=== PATIENT | male | born 1975 | race Caucasian/White ===

== ENCOUNTER → 2018-11-01 | Outpatient (CLI) | payer BC ==
--- NOTE | 2018-11-03 15:28 | SLEEPHOME ---
DATE OF PROCEDURE: 11/01/2018 ORDERING PROVIDER: ABRAM Ruiz, copy to Malina Kevin PA-C. INTERPRETATION: Diagnostic home sleep testing was performed due to concern for the apnea syndrome in this patient with a history of excessive somnolence and nonrestorative sleep. For testing a nocturnal T3 respiratory monitoring device was used. Continuous record was made of pulse, oxygen saturation, airflow, chest and abdominal strain and body position. 10 hours and 59 minutes of data were reviewed. Of these 7 hours and 16 minutes were marked as time in bed. During the interval marked in bed, there were 52 respiratory events identified of 10 duration or greater for a respiratory event index of 7.1. The events were primarily obstructive and mixed and central apneas were seen. Baseline pulse rate 68 beats per minute, pulse rate ranged 57-173. Baseline saturation was 91%. Lowest oxygen saturation 81%. Testing was performed in both the supine and nonsupine positions. IMPRESSION: Abnormal home sleep testing with repetitive respiratory events and oxygen desaturations to 81% with a respiratory event index of 7.1 is consistent with the obstructive sleep apnea syndrome. RECOMMENDATIONS: The patient should be encouraged to undergo formal sleep evaluation and in-laboratory pressure titration.
== END ==
LOC: M SLEEP HO 13:10
PROVIDERS: ATTEND Nurse Practitioner Family
DX: G47.33 Obstructive sleep apnea (adult) (pediatric) (principal)

== ENCOUNTER → 2018-11-22 | Outpatient (REF) | payer BC ==
[2018-11-22 19:51] LABS: BASO % 0.4 % (0.0-1.0); EOS # 0.1 10^3/uL (0.0-0.50); EOS % 1.8 % (0.0-3.0); HEMATOCRIT 46.3 % (42.0-52.0); HEMOGLOBIN 15.9 g/dl (13.5-17.5); LYMPH # 1.9 10^3/uL (1.5-4.5); LYMPH % 24.3 % (24.0-44.0); MEAN CORPUSCULAR HEMOGLOBIN 30.3 pg (27.0-33.0); MEAN CORPUSCULAR HGB CONC 34.3 g/dl (32.0-36.5); MEAN CORPUSCULAR VOLUME 88.4 fl (80.0-96.0); MONO # 0.6 10^3/uL (0.0-0.8); MONO % 7.2 % (0.0-5.0); NEUTROPHILS # 5.1 10^3/uL (1.8-7.7); NEUTROPHILS % 65.9 % (36.0-66.0); PLATELET COUNT, AUTOMATED 193 10^3/uL (150-450); RED BLOOD COUNT 5.24 10^6/uL (4.30-6.10); WHITE BLOOD COUNT 7.7 10^3/uL (4.0-10.0)
[2018-11-22 20:10] LABS: ALBUMIN 4.1 GM/DL (3.2-5.2); ALT/SGPT 65 U/L (12-78); BILIRUBIN,TOTAL 0.5 MG/DL (0.2-1.0); BLOOD UREA NITROGEN 13 MG/DL (7-18); CALCIUM LEVEL 8.7 MG/DL (8.5-10.1); CARBON DIOXIDE LEVEL 25 MEQ/L (21-32); CHLORIDE LEVEL 103 MEQ/L (98-107); CHOLESTEROL LEVEL 117 MG/DL (<200); CREATININE FOR GFR 1.02 MG/DL (0.70-1.30); GLOMERULAR FILTRATION RATE > 60.0 (>60); GLUCOSE, FASTING 331 MG/DL (70-100); HDL CHOLESTEROL 39 MG/DL (>40); LDL CHOLESTEROL 64 MG/DL (<100); NON-HDL-C 78 MG/DL; POTASSIUM SERUM 4.4 MEQ/L (3.5-5.1); SODIUM LEVEL 136 MEQ/L (136-145); TOTAL 25(OH) VITAMIN D 20.1 NG/ML (30.0-100.0); TRIGLYCERIDES LEVEL 72 MG/DL (<150)
[2018-11-22 20:41] LABS: APPEARANCE, URINE MANUAL CLOUDY (CLEAR); COLOR, URINE MANUAL YELLOW (YELLOW)
[2018-11-22 20:42] LABS: BILIRUBIN, URINE MANUAL NEGATIVE (NEGATIVE); BLOOD URINE MANUAL NEGATIVE (NEGATIVE); GLUCOSE, URINE (UA) MANUAL 4+(1000 MG/DL) mg/dL (NEGATIVE); KETONE, URINE MANUAL NEGATIVE (NEGATIVE); LEUKOCYTE ESTERASE, URINE MAN NEGATIVE (NEGATIVE); NITRITE, URINE MANUAL NEGATIVE (NEGATIVE); PROTEIN, URINE MANUAL NEGATIVE (NEGATIVE); SPECIFIC GRAVITY,URINE MANUAL 1.025 (1.002-1.035); UROBILINOGEN, URINE MANUAL NORMAL (NORMAL)
[2018-11-22 20:49] LABS: AMORPHOUS SEDIMENT, URINE LARGE AMOUNT (NEGATIVE); BACTERIA, URINE NONE SEEN; HYALINE CAST, URINE NONE SEEN /lpf (0-1); RBC, URINE 0-1 /hpf (0-3); SQUAMOUS EPITHELIAL CELL URINE SMALL AMOUNT /hpf (SMALL AMT)
== END ==
LOC: M SFHCADAM 11:33
PROVIDERS: ATTEND Physician Assistant Medical
DX: K92.1 Melena (principal); E66.01 Morbid (severe) obesity due to excess calories; Z82.49 Family history of ischemic heart disease and other diseases of the circulatory system; R40.0 Somnolence; R03.0 Elevated blood-pressure reading, without diagnosis of hypertension

== ENCOUNTER → 2018-12-13 | Outpatient (CLI) | payer BC ==
--- NOTE | 2018-12-15 00:11 | SLEEPCENT ---
DATE OF PROCEDURE: 12/13/2018 ORDERED BY: Danii Thomas Nocturnal polysomnography was performed for the titration of pressure therapy in this patient with a clinical diagnosis of obstructive sleep apnea syndrome supported by home testing revealing a respiratory event index of 7.1. For testing a [employer]Med Quattro Mirage full face mask of medium size was used. 5 cm of water pressure was initially applied to the circuit and the lights were extinguished. 6 hours and 58 minutes of data were reviewed. There were 201 minutes of sleep identified. Sleep latency was prolonged at 96 minutes. Rapid eye movement (REM) latency was prolonged at 205 minutes. Sleep architecture was good late in the study on optimal pressure therapy. There were two REM cycles noted. A prolonged period of wake between 12:30 and 2:30 resulted in reduced sleep efficiency of 48.7%. The electrocardiogram showed a sinus rhythm with an average heart rate of 64 beats per minute. EEG showed reasonably normal waveforms for awake and sleep. Respiratory events were fully palliated with continuous positive airway pressure (CPAP) at a pressure of 11 and remaining measures of sleep physiology were normal. IMPRESSION: Obstructive sleep apnea syndrome (G47.33). RECOMMENDATIONS: Nightly use of pressure therapy 11 cm of water.
== END ==
LOC: M SLEEP 19:28
PROVIDERS: ATTEND Nurse Practitioner Family
DX: G47.33 Obstructive sleep apnea (adult) (pediatric) (principal)

== ENCOUNTER 2018-12-22 07:30 | Day surgery (SDC) | payer BC ==
[~2018-12-22] VITALS: Ht 198.1 cm; Wt 170.1 kg
[~2018-12-22 07:30] MED LIST: NS 1,000 ML IV ONE
[2018-12-22] MEDS ORDERED: LIDOCAINE 2% INJ 100 MG/5 ML SDV (FOR ANES.) As Ordered ONE (07:51)
[2018-12-22] MEDS ORDERED: PROPOFOL 200 MG/20 ML VIAL As Ordered ONE (07:51)
--- NOTE | 2018-12-22 08:59 | ROOR ---
Patient Name: Darrius Osman Procedure Date: 12/22/2018 8:36 AM Date of : 1975 Age: 43 Room: [id number] Gender: Male Note Status: Finalized Procedure: Colonoscopy Indications: Hematochezia Providers: Kenney FAYE MD Referring MD: ELIEL Groves Requesting Provider: Medicines: Monitored Anesthesia Care Complications: No immediate complications. Procedure: Pre-Anesthesia Assessment: - The heart rate, respiratory rate, oxygen saturations, blood pressure, adequacy of pulmonary ventilation, and response to care were monitored throughout the procedure. The Colonoscope was introduced through the anus and advanced to the terminal ileum, with identification of the appendiceal orifice and IC valve. The colonoscopy was performed without difficulty. The patient tolerated the procedure well. The quality of the bowel preparation was suboptimal/fair. Findings: The perianal and digital rectal examinations were normal. Three sessile polyps were found in the sigmoid colon, splenic flexure and cecum. The polyps were diminutive in size. These polyps were removed with a cold snare. Resection and retrieval were complete. Internal hemorrhoids were found during retroflexion. The hemorrhoids were medium-sized. The exam was otherwise without abnormality on direct and retroflexion views. Impression: - Preparation of the colon was suboptimal. - Three diminutive polyps in the sigmoid colon, at the splenic flexure and in the cecum, removed with a cold snare. Resected and retrieved. - Internal hemorrhoids. - The examination was otherwise normal on direct and retroflexion views. Recommendation: - Repeat colonoscopy in 2 years because the bowel preparation was suboptimal. Kenney Faye MD Kenney FAYE MD 12/22/2018 8:59:35 AM Electronically signed by Kenney FAYE MD Number of Addenda: 0 Note Initiated On: 12/22/2018 8:36 AM Estimated Blood Loss: Estimated blood loss: none.
[2018-12-22 09:18] VITALS: BP 135/83
== END 2018-12-22 09:20 | disposition home or self-care (01) ==
LOC: M OPP 07:30
PROVIDERS: ATTEND Internal Medicine Gastroenterology
DX: K64.8 Other hemorrhoids (principal); D12.5 Benign neoplasm of sigmoid colon; D12.3 Benign neoplasm of transverse colon; D12.0 Benign neoplasm of cecum; K92.1 Melena; Z88.0 Allergy status to penicillin; F17.210 Nicotine dependence, cigarettes, uncomplicated

== ENCOUNTER → 2019-01-15 | Outpatient (REF) | payer BC ==
[2019-01-15 19:59] LABS: HEMOGLOBIN A1c 12.4 %
[2019-01-15 20:06] LABS: ALBUMIN 4.1 GM/DL (3.2-5.2); ALT/SGPT 68 U/L (12-78); BILIRUBIN,TOTAL 0.5 MG/DL (0.2-1.0); BLOOD UREA NITROGEN 14 MG/DL (7-18); CALCIUM LEVEL 9.2 MG/DL (8.5-10.1); CARBON DIOXIDE LEVEL 25 MEQ/L (21-32); CHLORIDE LEVEL 101 MEQ/L (98-107); CREATININE FOR GFR 0.98 MG/DL (0.70-1.30); GLOMERULAR FILTRATION RATE > 60.0 (>60); GLUCOSE, FASTING 524 MG/DL (70-100); POTASSIUM SERUM 4.5 MEQ/L (3.5-5.1); SODIUM LEVEL 135 MEQ/L (136-145)
[2019-01-15 20:22] LABS: CREATININE, URINE 44.9 MG/DL; MALB URINE SIEMENS < 5.0 MG/L; MAU/CREAT RATIO 11.1 MCG/MG (0.0-30.0)
== END ==
LOC: M SFHCADAM 11:58
PROVIDERS: ATTEND Physician Assistant Medical
DX: R73.01 Impaired fasting glucose (principal)

== ENCOUNTER 2019-01-19 11:53 | Emergency (ER) | payer BC, OTHER ==
[~2019-01-19] VITALS: Ht 195.6 cm; Wt 168.2 kg
[2019-01-19] MEDS ORDERED: RABIES IMMUNE GLOBULIN 1500 INTERNATIONAL UNIT/5ML VIAL (90375) IM ONE (12:30)
[2019-01-19] MEDS ORDERED: RABIES VACCINE HUMAN 2.5 INTERNATIONAL UNITS/ML VIAL (90675) IM ONE (12:30)
[2019-01-19] MEDS ORDERED: DOXY-350 PO (13:08)
[2019-01-19] MEDS ORDERED: FLAG500T PO (13:08)
[2019-01-19 14:00] VITALS: BP 98/55
== END 2019-01-19 14:02 | disposition home or self-care (01) ==
LOC: M ED 11:53
DX: S61.431A Puncture wound without foreign body of right hand, initial encounter (principal); S61.531A Puncture wound without foreign body of right wrist, initial encounter; W55.01XA Bitten by cat, initial encounter; Y92.098 Other place in other non-institutional residence as the place of occurrence of the external cause; Z88.0 Allergy status to penicillin

== ENCOUNTER 2019-01-22 14:12 | Emergency (ER) | payer BC, OTHER ==
[~2019-01-22] VITALS: Ht 198.1 cm; Wt 169.1 kg
[~2019-01-22 14:12] MED LIST changes: +DOXY-350 PO; +FLAG500T PO; -NS 1,000 ML IV ONE
[2019-01-22 14:13] VITALS: BP 127/70
[2019-01-22] MEDS ORDERED: RABIES VACCINE HUMAN 2.5 INTERNATIONAL UNITS/ML VIAL (90675) IM ONE (14:30)
== END 2019-01-22 14:51 | disposition home or self-care (01) ==
LOC: M ED 14:12
DX: Z23 Encounter for immunization (principal); Z20.3 Contact with and (suspected) exposure to rabies; Z88.0 Allergy status to penicillin

== ENCOUNTER 2019-01-26 08:07 | Emergency (ER) | payer BC, OTHER ==
[~2019-01-26] VITALS: Ht 198.1 cm; Wt 168.2 kg
[2019-01-26] MEDS ORDERED: TOUJ1.2I SQ (08:13)
[2019-01-26] MEDS ORDERED: RABIES VACCINE HUMAN 2.5 INTERNATIONAL UNITS/ML VIAL (90675) IM ONE (08:45)
[2019-01-26 09:13] VITALS: BP 150/80
== END 2019-01-26 09:14 | disposition home or self-care (01) ==
LOC: M ED 08:07
DX: Z20.3 Contact with and (suspected) exposure to rabies (principal); Z23 Encounter for immunization; F17.200 Nicotine dependence, unspecified, uncomplicated; Z88.0 Allergy status to penicillin

== ENCOUNTER 2019-02-02 09:01 | Emergency (ER) | payer BC, OTHER ==
[~2019-02-02] VITALS: Ht 198.1 cm; Wt 168.2 kg
[~2019-02-02 09:01] MED LIST changes: +TOUJ1.2I SQ
[2019-02-02 09:02] VITALS: BP 142/63
[2019-02-02] MEDS ORDERED: RABIES VACCINE HUMAN 2.5 INTERNATIONAL UNITS/ML VIAL (90675) IM ONE (09:30)
== END 2019-02-02 10:02 | disposition home or self-care (01) ==
LOC: M ED 09:01
DX: Z23 Encounter for immunization (principal); Z20.3 Contact with and (suspected) exposure to rabies; Z88.0 Allergy status to penicillin

== ENCOUNTER → 2019-02-08 | Outpatient (CLI) | payer BC, OTHER ==
--- NOTE | 2019-02-09 16:00 | REP ---
Clinical: Right-sided pain clavicle/shoulder. Technique: AP and axial views of the right clavicle. Findings: The acromioclavicular and sternoclavicular joints are intact and normal. There is no evidence for acute fracture or dislocation. Surrounding soft tissues are unremarkable. Impression: Normal clavicle radiographs. Electronically Signed by Wellington Galindo MD 02/09/2019 03:52 P
--- NOTE | 2019-02-09 16:00 | REP ---
Clinical: Pain. Technique: internal rotation, external rotation and Y-views of the right shoulder. Findings: Osseous structures, joint spaces and surrounding soft tissues are normal for age. No acute fracture or dislocation. Impression: Age appropriate right shoulder radiographs. Electronically Signed by Wellington Galindo MD 02/09/2019 03:52 P
== END ==
LOC: M ADAMS 11:59
PROVIDERS: ATTEND Physician Assistant Medical
DX: M25.511 Pain in right shoulder (principal); M89.8X1 Other specified disorders of bone, shoulder

== ENCOUNTER → 2019-02-22 | Outpatient (REF) | payer BC | LOC: M SFHCADAM 08:50 | PROVIDERS: ATTEND Physician Assistant Medical | DX: E11.9 Type 2 diabetes mellitus without complications (principal) ==

== ENCOUNTER → 2021-03-14 | Outpatient (CLI) | payer BC ==
[~2021-03-14] MED LIST changes: +TRUL0.5I
== END ==
LOC: M LABSMTC 10:22
PROVIDERS: ATTEND Anesthesiology
DX: Z01.812 Encounter for preprocedural laboratory examination (principal); Z20.822 Contact with and (suspected) exposure to COVID-19

== ENCOUNTER → 2021-06-11 | Outpatient (CLI) | payer BC | LOC: M LABSMTC 10:48 | PROVIDERS: ATTEND Anesthesiology | DX: Z01.812 Encounter for preprocedural laboratory examination (principal); Z20.822 Contact with and (suspected) exposure to COVID-19 ==

== ENCOUNTER 2021-06-15 06:57 | Day surgery (SDC) | payer BC ==
[~2021-06-15] VITALS: Ht 195.6 cm; Wt 153.8 kg
[~2021-06-15 06:57] MED LIST changes: +NS 1,000 ML IV ONE
[2021-06-15] MEDS ORDERED: LIDOCAINE 2% 100MG/5ML SDV (FOR ANES.) As Ordered ONE (07:24)
[2021-06-15] MEDS ORDERED: propofoL 200 MG/20 ML VIAL As Ordered ONE (07:24)
--- NOTE | 2021-06-15 07:56 | ROOR ---
Patient Name: Darrius Osman Procedure Date: 06/15/2021 7:37 AM Date of : 1975 Age: 45 Room: [facility] Gender: Male Note Status: Finalized Procedure: Colonoscopy Indications: High risk colon cancer surveillance: Personal history of colonic polyps, Surveillance: History of adenomatous polyps, inadequate prep on last exam (<3yr), Last colonoscopy: November 2018 Providers: Kenney Faye MD Referring MD: ELIEL Groves Requesting Provider: Medicines: Monitored Anesthesia Care Complications: No immediate complications. Procedure: Pre-Anesthesia Assessment: - The heart rate, respiratory rate, oxygen saturations, blood pressure, adequacy of pulmonary ventilation, and response to care were monitored throughout the procedure. The Colonoscope was introduced through the anus and advanced to the terminal ileum, with identification of the appendiceal orifice and IC valve. The colonoscopy was performed without difficulty. The patient tolerated the procedure well. The quality of the bowel preparation was adequate. Findings: The perianal and digital rectal examinations were normal. A diminutive polyp was found in the splenic flexure. The polyp was sessile. The polyp was removed with a cold snare. Resection and retrieval were complete. Small Internal Hemorrhoids. The entire examined colon appeared normal on direct and retroflexion views. The exam was otherwise without abnormality on direct and retroflexion views. Impression: - One diminutive polyp at the splenic flexure, removed with a cold snare. Resected and retrieved. - Small Internal Hemorrhoids. - The entire examined colon is normal on direct and retroflexion views. - The examination was otherwise normal on direct and retroflexion views. Recommendation: - Repeat colonoscopy in 5 years for surveillance. Procedure Code(s): --- Professional --- 74304, Colonoscopy, flexible; with removal of tumor(s), polyp(s), or other lesion(s) by snare technique Diagnosis Code(s): --- Professional --- Z86.010, Personal history of colonic polyps K63.5, Polyp of colon CPT copyright 2019 [employer]. All rights reserved. The codes documented in this report are preliminary and upon jerker review may be revised to meet current compliance requirements. Kenney Faye MD Kenney Faye MD 06/15/2021 7:55:57 AM Electronically signed by Kenney Faye MD Number of Addenda: 0 Note Initiated On: 06/15/2021 7:37 AM Estimated Blood Loss: Estimated blood loss: none.
[2021-06-15 08:21] VITALS: BP 127/65
== END 2021-06-15 08:23 | disposition home or self-care (01) ==
LOC: M OPP 06:57
PROVIDERS: ATTEND Internal Medicine Gastroenterology
DX: Z12.11 Encounter for screening for malignant neoplasm of colon (principal); Z86.010 Personal history of colon polyps; D12.3 Benign neoplasm of transverse colon; G47.30 Sleep apnea, unspecified; F17.210 Nicotine dependence, cigarettes, uncomplicated; Z79.899 Other long term (current) drug therapy; Z88.1 Allergy status to other antibiotic agents